=== PATIENT | male | born 1960 | race Caucasian/White ===

== ENCOUNTER 2018-11-27 13:00 | Observation (INO) ==
[2018-11-27] MEDS ORDERED: ASPIRIN PO ONE (13:22)
[2018-11-27] MEDS ORDERED: ASPIRIN PR ONE (13:22)
[2018-11-27 13:52] LABS: BASO# 0.02 X1000 (0.0-0.2); BASO% 0.2 % (0.0-0.8); EOS# 0.07 X1000 (0.0-0.7); EOS% 0.8 % (0.0-10.0); HEMOGLOBIN 15.1 g/dL (14.0-18.0); LYMPH# 0.88 X1000 (1.2-3.4); LYMPH% 10.3 % (20.5-51.1); MCH 30.9 PG (27-31); MCHC 32.1 g/dL (33-37); MCV 96.3 FL (81-99); MONO# 0.77 X1000 (0.11-0.59); MPV 9.7 FL (7.4-10.4); NEUT# 6.82 X1000 (1.4-6.5); NEUT% 79.7 % (42.2-75.2); PLT 231 X1000 (130-400); RBC 4.88 XMIL (4.7-6.1); RDW 13.2 % (11.5-14.5); WBC 8.56 X1000 (4.8-10.8)
[2018-11-27 13:56] LABS: INR 0.94; PROTIME 13.3 Seconds (11.0-16.0); PTT 29.2 Seconds (22.3-41.8)
[2018-11-27 14:03] LABS: AGAP 10; ALB/GLOB RATIO 2.7; ALBUMIN 4.3 g/dL (3.5-5.0); ALKALINE PHOSPHATASE 57 U/L (32-122); BUN 10 mg/dL (8-22); CALCIUM 8.8 mg/dL (8.8-10.2); CHLORIDE 100 mmol/L (98-107); CK PROFILE 54 U/L (24-204); COSMO 272; CREATININE 0.8 mg/dL (0.7-1.2); ESTIMATED GFR > 60; GLUCOSE 119 mg/dL (70-104); GOT 12 U/L (10-34); GPT 12 U/L (10-44); POTASSIUM 4.7 mmol/L (3.5-5.1); SODIUM 136 mmol/L (136-145); TCO2 26 mmol/L (25-35); TOTAL BILIRUBIN 2.08 mg/dL (0.20-1.00); TOTAL PROTEIN 5.9 g/dL (6.3-8.3)
--- NOTE | 2018-11-27 14:11 | Diag Imaging Result Doc PS360 ---
EXAM: CHEST-2 VIEWS 11/27/2018 HISTORY: poss pneumo TECHNIQUE: PA and lateral chest COMMENT: There is increasing blunting of the right costophrenic angle compared to 11/26/2018. There is apparent subsegmental atelectasis over the right base. IMPRESSION: Atelectasis versus pneumonia right lower lobe with small effusion. Electronically signed by Jose Daniel Giordano 11/27/2018 2:08 PM
--- NOTE | 2018-11-27 14:12 | EKG Report ---
Test Performed on : 11/27/2018 1:31:12 PM Test Reason : poss pneumothorax Blood Pressure : / mmHG Vent. Rate : 111 BPM Atrial Rate : 111 BPM P-R Int : 216 ms QRS Dur : 092 ms QT Int : 316 ms P-R-T Axes : 005 026 -43 degrees QTc Int : 429 ms Sinus tachycardia. with 1st degree AV block. Cannot rule out Inferior infarct , age undetermined Abnormal ECG No previous ECGs available Unconfirmed Result
--- NOTE | 2018-11-27 14:18 | PROVIDER DOCUMENTATION ---
This chart was entered by Emili Ca Scribe, acting as scribe for Aaron Maldonado MD. HPI-Respiratory General - General Chief Complaint: Shortness of Breath Stated Complaint: COLLAPSED LUNG/BLOOD CLOT Time Seen by Provider: 11/27/18 13:54 Source: patient, family Allergies/Adverse Reactions: Patient Allergies Allergy/AdvReac Type Severity Reaction Status Date / Time No Known Allergies Allergy Verified 11/27/18 15:26 Home Medications: Home Medication List Medication Instructions Recorded Confirmed Last Taken Type Azithromycin 250 mg PO DAILY 11/27/18 11/27/18 Unknown History - History of Present Illness-Resp Nature of Presenting Problem: 57 yom presents to ed with cc of sob. Pt reports his Right sided chest pain with sob started on Monday and reports that went to pcp on Monday and today went to the imaging center and the CTA showed the following: Impression: Positive PTE with multiple probable small pulmonary emobli within both lower lobes within the more distal aspect of the lobar arteries and a few of the segmental and subsegemental branches within both lower lobes. Please see pt chart for the full reading of the CTA. Pt was told by Dr. Alvares to come to ER. Quality of Pain: reports: aching Severity in ED: reports: moderate Onset/Duration: reports: 3 days ago Timing: reports: still present Review of Systems - Adult - REVIEW OF SYSTEMS - ADULT Constitutional: reports: fatique. denies: chills, fever Eyes: reports: no symptoms reported Ears, Nose, Mouth & Throat: denies: ear pain, sinus problem, throat pain Cardiovascular: denies: chest pain, irregular heart rate, orthopnea, syncope Respiratory: reports: shortness of breath. denies: cough, pleurisy, wheezing Gastrointestinal: denies: abdominal pain, diarrhea, nausea, vomiting Genitourinary: denies: dysuria, discharge, frequency, flank pain, frequent UTI's , hematuria, hesitency, incontinence Musculoskeletal: reports: no symptoms reported Integumentary: reports: no symptoms reported Neurological: reports: no symptoms reported Psychiatric: reports: no symptoms reported Endocrine: reports: no symptoms reported Hematologic/Lymphatic: reports: no symptoms reported Allergic/Immunologic: reports: no symptoms reported All Other Systems: Reviewed and Negative Past History - Adult - PAST MEDICAL HISTORY-ADULT Review of Records: reports: Nursing Assessment Review, Medications Reviewed Major Childhood Illnesses: reports: denies history Cardiovascular: reports: denies history Respiratory: reports: denies history Gastrointestinal: reports: denies history Obstetrical/Gynecological: reports: denies history Genitourinary: reports: denies history Musculoskeletal: reports: denies history Neurological: reports: denies history Endocrine/Immune: reports: denies history Other Conditions: reports: denies history - IMMUNIZATION STATUS Childhood Immunizations: See Nurse Assessment Flu Vaccine: See Nurse Assessment - FAMILY HISTORY Family History: reviewed, not pertinent - SOCIAL HISTORY Smoking: other (former smoker) Substance Use: alcohol Alcohol Use Frequency: every day Number of drinks per typical drinking period:: 3-4 drinks Physical Exam-General - PHYSICAL EXAM-ADULT Initial Vital Signs Reviewed: Yes - CONSTITUTIONAL General Appearance: appears well, alert, no apparent distress - EYES Eyes: PERRL/EOMI, pink conjunctivae - HEAD, EARS, NOSE, MOUTH & THROAT HENMT: moist mucous membranes, normal ENT inspection, TMs normal, pharynx normal - NECK Neck: non-tender, full range of motion, supple, normal inspection - RESPIRATORY Respiratory: chest non-tender, lungs clear, normal breath sounds, no pleuratic chest pain, no respiratory distress, no accessory muscle use - CARDIOVASCULAR Cardiovascular: tachycardia - GASTROINTESTINAL (ABDOMEN) Abdominal Exam: non tender, soft, no organomegaly - LYMPHATIC Lymphatic: no adenopathy - MUSCULOSKELETAL Back Exam: normal inspection Extremity: normal range of motion, non-tender, normal gait, normal inspection - SKIN Integumentary: normal color, normal turgor, warm/dry, warm (to touch due to fever) - NEUROLOGIC Neurologic: grossly normal - PSYCHIATRIC Psych/Mental Status: normal mood/affect, normal thought content, normal thought process, oriented x 3 Progress - PLAN OF CARE/RESULTS Progress/Plan/Lab Results: Vital Signs - 8 hr 11/27/18 13:10 11/27/18 14:14 11/27/18 14:15 Temperature 99.7 F H Pulse Rate 110 H 129 H Respiratory Rate 20 37 H 11 L Blood Pressure 145/84 151/100 O2 Sat by Pulse Oximetry 96 96 11/27/18 14:20 11/27/18 14:30 11/27/18 14:40 Temperature Pulse Rate 97 H 101 H 101 H Respiratory Rate 23 25 H 20 Blood Pressure O2 Sat by Pulse Oximetry 96 97 95 11/27/18 14:50 11/27/18 15:00 11/27/18 15:10 Temperature Pulse Rate 99 H 133 H 99 H Respiratory Rate 22 23 24 Blood Pressure O2 Sat by Pulse Oximetry 96 96 94 L Laboratory Results - last 24 hr 11/27/18 11/27/18 11/27/18 13:35 13:35 13:35 WBC 8.56 RBC 4.88 Hgb 15.1 Hct 47.0 MCV 96.3 MCH 30.9 MCHC 32.1 L RDW Std Deviation 13.2 Plt Count 231 MPV 9.7 Neut % (Auto) 79.7 H Lymph % (Auto) 10.3 L Brewster % (Auto) 9.0 Eos % (Auto) 0.8 Baso % (Auto) 0.2 Neut # (Auto) 6.82 H Lymph # (Auto) 0.88 L Brewster # (Auto) 0.77 H Eos # (Auto) 0.07 Baso # (Auto) 0.02 PT INR PTT (Actin FS) Sodium 136 Potassium 4.7 Chloride 100 Carbon Dioxide 26 Anion Gap 10 BUN 10 Creatinine 0.8 Estimated GFR/1.73 m2 > 60 BUN/Creatinine Ratio 13 Glucose 119 H Calculated Osmolality 272 Calcium 8.8 Total Bilirubin 2.08 H AST 12 ALT 12 Alkaline Phosphatase 57 Creatine Kinase 54 Troponin T Ciy-P-Njmyogycsui Pept 97 Total Protein 5.9 L Albumin 4.3 Globulin 1.6 Albumin/Globulin Ratio 2.7 11/27/18 11/27/18 13:35 13:35 WBC RBC Hgb Hct MCV MCH MCHC RDW Std Deviation Plt Count MPV Neut % (Auto) Lymph % (Auto) Brewster % (Auto) Eos % (Auto) Baso % (Auto) Neut # (Auto) Lymph # (Auto) Brewster # (Auto) Eos # (Auto) Baso # (Auto) PT 13.3 INR 0.94 PTT (Actin FS) 29.2 Sodium Potassium Chloride Carbon Dioxide Anion Gap BUN Creatinine Estimated GFR/1.73 m2 BUN/Creatinine Ratio Glucose Calculated Osmolality Calcium Total Bilirubin AST ALT Alkaline Phosphatase Creatine Kinase Troponin T < 0.010 Bjz-I-Liaxxbnazwf Pept Total Protein Albumin Globulin Albumin/Globulin Ratio Orders Category Date Time Status Cardiac Monitoring DIRECTED Care 11/27/18 13:22 Active Oxygen Therapy- ED Nursing DIRECTED Care 11/27/18 13:22 Active Saline Loc NOW Care 11/27/18 13:22 Active CHEST-2 VIEWS [RAD] Stat Exams 11/27/18 13:21 Completed BLOOD CULTURE [BLDCUL] Stat Lab 11/27/18 15:13 Uncollected CBC WITH ELECTRONIC DIFF [HEME] Stat Lab 11/27/18 13:35 Completed CK PROFILE [SP CHEM] Stat Lab 11/27/18 13:35 Completed COMPREHENSIVE METABOLIC PANEL [CHEM] Stat Lab 11/27/18 13:35 Completed PRO B-NATRIURETIC PEPTIDE Stat Lab 11/27/18 13:35 Completed PROTIME WITH INR [COAG] Stat Lab 11/27/18 13:35 Completed PTT [COAG] Stat Lab 11/27/18 13:35 Completed TROPONIN T Stat Lab 11/27/18 13:35 Completed Aspirin Med 11/27/18 13:22 Discontinued 300 mg DC NOW ONE Aspirin Med 11/27/18 13:22 Discontinued 325 mg PO NOW ONE Enoxaparin [Lovenox] Med 11/27/18 15:35 Once 110 mg SUBQ NOW ONE CP/SOB/Palp >45 yrs of Age Stat Oth 11/27/18 13:22 Ordered EKG [EKG] Stat Ther 11/27/18 13:22 Draft Transfer/Admit Order [TRANSFER] Routine Transfer 11/27/18 15:35 Ordered 1531 Hospitalist paiged Result Diagrams: 11/27/18 13:35 11/27/18 13:35 - EKG 1 Time of EKG reading by physician:: 13:31 EKG Read and Signed by:: Aaron Maldonado EKG Interpretation (*Must complete 3 of following elements*): Abnormal Rate: 111 Rhythm: sinus tachy 1st av block [place]: normal QRS: normal DC Interval: normal ST Wave: normal - XRAY 1 XRAY: Bilateral XRAY Study: Chest Impression: Abnormal ( IMPRESSION: Atelectasis versus pneumonia right lower lobe with small effusion. Electronically signed by Jose Daniel Giordano 11/27/2018 2: 08 PM) - CONSULTS/PCP/HOSPITALIST Notification #1 *Consult/PCP/Hospitalist*: [employer]ESSING TECHNICIAN HOSPITALIST [facility] FOR DR. FLORES Time Discussed: 15:30 Consult Disposition: Admit Departure - Departure Date of Disposition Decision: 11/27/18 Time of Disposition Decision: 15:22 DIAGNOSIS: SOB (shortness of breath), Pulmonary emboli Disposition: ADMITTED INPATIENT 09 Certified Medical Emergency: Emergent Condition: Stable Referrals and Follow-Ups: Naresh Alvares MD [Primary Care Provider] - - Critical Care Note This patient required my direct & personal management of CC.: No Attestation - Physician/ UBALDO Attestation Patient care was provided by Advanced Practice Provider:: No The physician spent face to face time with patient:: Yes Advanced Practice Provider documentation review:: Supervising physician onsite and consulted in the evaluation and care of this patient. The physician did have a face to face encounter with the patient. This chart was documented by the indicated scribe, (Emili Ca Scribe) and accurately reflects the services I performed and decisions made by me, Aaron Maldonado MD, as attested by the provider's signature.
[2018-11-27] MEDS ORDERED: LOVENOX SUBQ ONE ×2 (15:35→15:45)
--- NOTE | 2018-11-27 17:26 | HISTORY AND PHYSICAL ---
PRIMARY CARE PHYSICIAN: Naresh Alvares MD CHIEF COMPLAINT: Shortness of breath. HISTORY OF PRESENT ILLNESS: Mr. Fitzpatrick is a 57-year-old male with no past medical history with the exception of a distant history of cluster headaches. He presents after being instructed that a CT of his chest this morning showed scattered pulmonary emboli , and he should come to the ER for admission to the hospital. His symptoms began on Monday. He began having right-sided chest pain followed by fever. His symptoms waxed and waned over the weekend and began to progress on Monday. He did have some shortness of breath and went to Dr. Alvares's office, who ordered a D-dimer, among other tests. His D-dimer was elevated, which prompted a CTA of the chest, which ultimately revealed scattered pulmonary emboli as well as a partially calcified pericardium and mild hepatosplenomegaly. The patient denies any recent surgery or recent travel long distances in airplane or car. He denies any family history of PE or DVT. No recent lower extremity trauma, but does report that he had some right lower extremity pain around 3 weeks ago, which he attributed to exercising. Currently his chest x-ray shows some atelectasis versus pneumonia in the right lower lobe. His lab work is relatively unremarkable. He does have an elevation of his bilirubin at 2.08, which is isolated. He is hemodynamically stable and will be admitted to the floor for further treatment and evaluation. PAST MEDICAL HISTORY: History of cluster headaches. Otherwise none. PAST SURGICAL HISTORY: He has had an abdominal hernia repair. SOCIAL HISTORY: He quit smoking 10 years ago. His alcohol use varies. He reports increasing stress from a divorce 15 months ago and can sometimes drink multiple mixed drinks or beers on the weekend but denies daily use. FAMILY HISTORY: Mother from strokes. Father is alive at 91 with no real medical problems. REVIEW OF SYSTEMS: A 14-point review of systems was reviewed and found to be negative with the exception of the HPI. ALLERGIES: No known drug allergies. HOME MEDICATIONS: Currently on an azithromycin dose pack but no regular home medications. PHYSICAL EXAMINATION: VITAL SIGNS: Blood pressure 145/84, heart rate 105, O2 saturation 94% on room air, temperature 99.7. GENERAL: This is a well-developed, well-nourished male lying in the hospital bed in no acute distress. NEUROLOGICAL: He is awake, alert and oriented. Follows commands without focal deficits. HEENT: Head is atraumatic and normocephalic. Pupils are equal, round and reactive to light. Oral mucosa is dry and pale. NECK: Trachea is midline. There is no JVD. CHEST: Diminished at the bases with crackles over the right lung base.. CV: Tachycardic, regular. S1 and S2 is noted. No murmurs. GI: Soft, nondistended, nontender. Bowel sounds positive. EXTREMITIES: No edema, clubbing or cyanosis. Pulses 2+ bilaterally. DIAGNOSTIC DATA: Labs are unremarkable with the exception of a t-bili of 2.08. Chest x-ray shows atelectasis versus pneumonia in the right lung base. EKG: Sinus tachycardia with nonspecific T changes. ASSESSMENT/PLAN: 1. Acute pulmonary emboli: The patient has been started on Lovenox. Will transition him to Eliquis starting in the morning, check an echocardiogram, trend his cardiac enzymes, monitor his pulmonary status closely, and check venous Doppler ultrasounds. No evidence to suggest familial hypercoagulability. 2. Isolated hyperbilirubinemia. The patient denies any abdominal pain, nausea or vomiting. We have asked him to cut down drinking to no more than 2 drinks a day, especially with use of an anticoagulant. 3. Deep venous thrombosis prophylaxis provided with Lovenox. Further recommendations to follow. Dictated by TANA Baumann for Volodymyr Perrin MD cc: TANA Baumann MD Kenneth E. Mashburn, MD I have see and examined Mr Fitzpatrick today. I have also reviewed his labs and imagining studies. Mr Fitzpatrick complains of pleuritic chest pain with DEL ROSARIO. CTA of lungs from his PCP office reveals bilateral PEs Patient hemodynamically stable. I agree with the above HPI and the plan reflects my opinion discussed with the PILLOWCASE SEWER ROSARIO
[2018-11-27] MEDS ORDERED: FIORICET PO ONE (23:10)
[2018-11-28 04:38] LABS: HEMATOCRIT 46.2 % (42.0-52.0); MCH 31.1 PG (27-31); MCHC 32.5 g/dL (33-37); MCV 95.9 FL (81-99); MPV 9.3 FL (7.4-10.4); RBC 4.82 XMIL (4.7-6.1); RDW 12.9 % (11.5-14.5); WBC 7.77 X1000 (4.8-10.8)
[2018-11-28 05:40] LABS: AGAP 13; BUN 9 mg/dL (8-22); CALCIUM 8.6 mg/dL (8.8-10.2); CHLORIDE 102 mmol/L (98-107); COSMO 272; CREATININE 0.7 mg/dL (0.7-1.2); ESTIMATED GFR > 60; GLUCOSE 85 mg/dL (70-104); POTASSIUM 4.1 mmol/L (3.5-5.1); SODIUM 137 mmol/L (136-145); TCO2 22 mmol/L (25-35)
[2018-11-28] MEDS: ELIQUIS PO SCH ×2 (10:28→18:49)
--- NOTE | 2018-11-28 11:36 | PROGRESS NOTE ---
DATE: 11/28/2018 SUBJECTIVE: This morning, Mr. Fitzpatrick refers to be feeling a lot better. According to him, the chest pain seems to be getting under control. OBJECTIVE: Vital signs: Blood pressure is 141/86, pulse is 80, respiration is 18, temperature 97.8 degrees. General: Mr. Fitzpatrick is a 57-year-old morbidly obese, gentleman. He is in bed. BMI is 31.7. He was not in any cardiopulmonary distress. HEENT: Mucosa was pink and moist. Anicteric. Acyanotic. Neck: Supple. Chest: Good air entry bilaterally. Few crackles posteriorly, but no wheezing. Cardiovascular: Regular rate and rhythm. No murmurs, no rubs, no gallops. Abdomen: Soft, distended, but nontender. Extremities: No pedal edema. CAR MECHANIC: Patient is awake, alert, oriented. There is no focal neurological deficit. LABORATORY DATA: WBC 7.77, hemoglobin is 15, platelet count of 222,000. Chemistry is also reviewed and is completely unremarkable. So far, troponins have been unremarkable. REVIEW OF RADIOGRAPH: 1. An outside CT scan report shows: 1) Positive PTE with multiple probable small scattered pulmonary emboli within both lower lobes, within the more distal aspect of the pulmonary arteries and a few of the segmental and subsegmental branches within both lower lobes. 2) Subsegmental atelectasis within the right lung base and right lower lobe and a small to slightly more moderate right pleural effusion collection within which may be related to these probable PEs. 3) No suspicious pulmonary nodules or masses identified within the lung iyer. There was a partial calcified pericardium present with no pericardial effusion. No discrete lymphadenopathy. There was a mild hepatomegaly and davu-tu-cfbzpeed splenomegaly. 2. A Doppler ultrasound that was done yesterday over here, extra official report states that there is a bilateral DVT in both calf veins. We are waiting for the official report on these. ASSESSMENT: 1. Pleuritic chest pain secondary to bilateral pulmonary emboli. The patient is currently on anticoagulation. 2. Bilateral lower extremity deep vein thromboses. The reason for patient having venous thromboemboli is unknown. He seems to be a pretty active gentleman. However , he said he might have injured his left ankle and because of that, he has been sitting down for some time, not being extremely active, but not withstanding that, I think it is rare for him to develop these deep venous thromboses: bilateral and bilateral pulmonary emboli. I think we need to rule out possibility of an underlying thrombophilic state versus underlying malignancy. There is a mention on his CT scan of splenomegaly and hepatomegaly. We will do a CT abdomen and pelvis to rule out any underlying mass that could be precipitating some of these venous thromboemboli. We also ordered the thrombophilic workup and we will get Hematology/Oncology to see him. 3. Bibasal atelectasis with pleural effusions secondary to the pulmonary emboli noted. 4. Obesity with body mass index of 31.7. cc: Volodymyr Perrin MD MTDD
[2018-11-28 12:12] LABS: URINE SOURCE CLEAN CATCH
[2018-11-28 12:15] LABS: BILIRUBIN URINE NEGATIVE (NEGATIVE); BLOOD URINE NEGATIVE (NEGATIVE); COLOR YELLOW; GLUCOSE URINE NEGATIVE (NEGATIVE); KETONE URINE NEGATIVE (NEGATIVE); LEUKOCYTES URINE NEGATIVE (NEGATIVE); NITRITE URINE NEGATIVE (NEGATIVE); PROTEIN URINE NEGATIVE (NEGATIVE); SP GRAVITY URINE 1.004; TURBIDITY URINE CLEAR (CLEAR); UR EPITHELIAL CELLS <10 /HPF (<10); URINE BACTERIA NEGATIVE /HPF; URINE RBC <10 /HPF (<10); URINE WBC <10 /HPF (<10); UROBILINOGEN URINE NORMAL (NORMAL)
--- NOTE | 2018-11-28 13:52 | Diag Imaging Result Doc PS360 ---
EXAM: CT ABD/PELVIS W/IV CONT ONLY INDICATION: abd pain/ Multiple VTEs/ r/o underlying malignancy TECHNIQUE: This exam was performed using automated exposure control, adjustment of mA or kV according to patient size, and/or use of iterative reconstruction technique. COMPARISON: CTA chest from an outside facility dated 11/27/2018. No prior dedicated CT of the abdomen and pelvis is available for comparison. FINDINGS: There is a small effusion at the right lung base with adjacent airspace infiltrate and atelectasis that is stable to marginally worse than the previous study. There is a miniscule noncalcified nodule in the left lower lobe, likely a granuloma. The gallbladder is contracted. The liver is unremarkable. The spleen is mildly prominent measuring up to 15.6 cm in the greatest axial length. The pancreas and adrenal glands are unremarkable. The renal contours are slightly lobulated suggesting persistent lobulations. The kidneys are unremarkable, otherwise. The urinary bladder is only slightly distended. There is mild urinary bladder wall thickening that appears to be due to underdistention. It is unremarkable, otherwise. There is a small left inguinal hernia that contains only fat. The appendix is normal. The GI tract is essentially unremarkable. No focal inflammatory changes, free abdominal gas, or free fluid is identified. There are cvhv-ev-nhbghath degenerative changes involving the lumbar spine and hips. There is nothing to suggest bony metastatic disease. IMPRESSION: 1.Right basilar consolidation and atelectasis with an adjacent small right pleural effusion that is stable to marginally worse than the previous study. 2.Mildly prominent spleen. 3.Other external/nonacute findings detailed above. Electronically signed by Jose Acosta 11/28/2018 1:50 PM
[2018-11-28 16:51] VITALS: BP 144/82
--- NOTE | 2018-11-29 11:33 | ECHO REPORT ---
ORDER DATE: 11/27/2018 INDICATION: Pulmonary embolus. DVT. Calcified pericardium. FINDINGS: 1. The right atrium appears normal in size. 2. There is trace tricuspid regurgitation. Insufficient data to accurately estimate the RV systolic pressure. 3. Right ventricle appears normal in size with normal RV systolic function. The right ventricular apex is not well seen. 4. No significant pulmonic insufficiency. 5. The left atrium is mildly enlarged at 4.1 cm. 6. No mitral valve prolapse. Trace mitral regurgitation. 7. Normal LV size, end-diastolic dimension of 5.5 cm. Normal wall thicknesses with a posterior and interventricular septal wall thickness of 1.0 cm each. Normal LV systolic function. Estimated EF of 55% to 60% with normal wall motion. 8. Aortic valve opens well. It is trileaflet. No evidence of stenosis or insufficiency. 9. Aorta appears normal on visualized segments. 10. No pericardial effusion is seen. cc: MD Tonio Santa CRNP
--- NOTE | 2018-11-30 10:49 | DISCHARGE SUMMARY ---
ADMISSION DATE: 11/27/2018 DISCHARGE DATE: 11/28/2018 DISPOSITION: Home. FOLLOWUP: 1. Naresh Alvares MD. 2. Matheus Ramos MD. CONSULTATIONS: During this admission: Hematology-Oncology was consulted. Patient was seen by Dr. Ramos. INVASIVE PROCEDURES: Done during this admission, none. IMAGING STUDIES OF SIGNIFICANCE: Atelectasis versus pneumonia right lower lobe with small effusion. A CT scan of the abdomen did not show any mass. There was mild prominent spleen. Right basilar consolidation and atelectasis with adjacent small right pleural effusion. ADMISSION DIAGNOSES: 1. Acute pulmonary emboli. 2. Isolated hyperbilirubinemia. DISCHARGE DIAGNOSES: 1. Pleuritic chest pain secondary to bilateral pulmonary emboli with pulmonary infarction. 2. Bilateral lower extremity deep vein thrombosis. 3. Bibasilar atelectasis with pleural effusion secondary to pulmonary emboli with infarction. 4. Obesity with body mass index of 31.7. DISCHARGE MEDICATIONS: 1. Azithromycin 250 p.o. daily. 2. Eliquis 10 mg b.i.d. for 6 more days. 3. Then after that, Eliquis 5 mg b.i.d. for 3 to 6 months. PRESENTING COMPLAINT: Shortness of breath. HISTORY OF PRESENTING COMPLAINT: Mr. Fitzpatrick is a 57-year-old, gentleman, with no past medical history. The patient is a relatively healthy christian who presented to his primary care doctor because of ongoing shortness of breath. He was worked up and outpatient CT scan did show that he had bilateral PE. The patient was subsequently referred from his PCP office to the hospital for medical care. HOSPITAL COURSE: Mr. Fitzpatrick was admitted to the medical floor. Was initially started on subcutaneous Lovenox. A Doppler of the lower extremities did reveal bilateral DVTs at the calf veins. Thrombophilic workup was sent. At the time of discharge, most of it had not come back yet. A CT scan of the abdomen and pelvis was also done to rule out any underlying malignancy which so far did not show any mass. Mr. Fitzpatrick was started on p.o. Eliquis. He tolerated the medication well without any reaction. On the day of discharge, he felt to be good. He has been evaluated by Hematology-Oncology and they recommended to follow up on outpatient basis. His vitals at the time of discharge, blood pressure is 144/82, pulse is 83, respirations 18, temperature is 98.2. Please refer to the details of my progress note for the day of the discharge. All the discharge instructions have been discussed with Mr. Fitzpatrick and he voiced understanding. TIME SPENT: For discharge is 36 minutes. cc: MD Matheus Burks MD Kenneth E. Mashburn, MD
[2018-12-05] MEDS ORDERED: ELIQUIS PO SCH (09:00)
== END 2018-11-28 20:04 | disposition home or self-care (01) ==
LOC: EDIPHOLD 13:00 → ED 13:00 → SUATTDRO 13:01 → 3N 20:28
PROVIDERS: ATTEND Internal Medicine
CPT/HCPCS: 71020; 71046; 74177; 80048; 80053; 81001; 81240; 81241; 82550; 83090; 83735; 83880; 84484; 85025; 85027; 85300; 85301; 85302; 85306; 85610; 85612; 85613; 85730; 86147; 87040; 93005; 93306; 93970; 96372; 99285; A9270; C8929; G0378; J1650; Q9957; Q9967